=== PATIENT | female | born 1955 | race Caucasian/White ===

== ENCOUNTER 2022-12-16 14:05 | Emergency (ER) | payer MEDICARE, BC ==
[~2022-12-16] VITALS: Ht 162.6 cm; Wt 70.0 kg
[2022-12-16 16:50] LABS: BASOPHILS % (AUTO) 0.4 % (0-1); EOSINOPHILS % (AUTO) 0.3 % (0-6); HEMATOCRIT 39.7 % (35.0-45.0); HEMOGLOBIN 12.8 g/dl (12.0-16.0); LYMPHOCYTES # (AUTO) 0.8 X10'3 (1.1-4.8); LYMPHOCYTES % (AUTO) 8.4 % (21-51); MEAN CORPUSCULAR HEMOGLOBIN 28.9 PG (27.0-31.0); MEAN CORPUSCULAR HGB CONC 32.3 g/dL (33.0-36.5); MEAN CORPUSCULAR VOLUME 89.7 FL (78-98); MEAN PLATELET VOLUME 7.4 FL (7.4-10.4); MONOCYTES # (AUTO) 0.6 X10'3 (0-0.9); MONOCYTES % (AUTO) 5.9 % (2-12); NEUTROPHILS # (AUTO) 7.9 X10'3 (1.8-7.7); PLATELET COUNT 303 X10'3 (140-440); RED BLOOD COUNT 4.43 X10'6 (4.20-5.60); WHITE BLOOD COUNT 9.3 X10'3 (4.5-11.0)
[2022-12-16 17:05] LABS: ALANINE AMINOTRANSFERASE 21 U/L (12-78); ALBUMIN 3.7 G/DL (3.4-5.0); ALBUMIN/GLOBULIN RATIO 1.3 (1.1-1.5); ALKALINE PHOSPHATASE 93 IU/L (46-116); ANION GAP 8 (8-16); ASPARTATE AMINO TRANSFERASE 11 U/L (10-37); BILIRUBIN,TOTAL 0.7 MG/DL (0.1-1.0); BLOOD UREA NITROGEN 19 MG/DL (7-18); BUN/CREATININE RATIO 22.1 (10.0-20.0); C-REACTIVE PROTEIN 1.52 MG/DL (0.0-0.5); CHLORIDE 107 MMOL/L (99-107); CREATININE 0.86 MG/DL (0.40-0.90); GLUCOSE 105 MG/DL (70-104); SODIUM 143 MMOL/L (135-145); TOTAL CARBON DIOXIDE 27.9 MMOL/L (24-32); TOTAL PROTEIN 6.6 G/DL (6.4-8.2); eGFR 65 ML/MIN
[2022-12-16 18:02] VITALS: BP 125/81
[2022-12-16] MEDS ORDERED: CEPH-585 PO (18:48)
== END 2022-12-16 18:59 | disposition home or self-care (01) ==
LOC: ER 14:06
DX: M71.521 Other bursitis, not elsewhere classified, right elbow (principal); L03.113 Cellulitis of right upper limb
CPT/HCPCS: 36415; 73080; 80053; 84145; 85025; 85651; 86140; 99285